=== PATIENT | male | born 1975 | race Caucasian/White ===

== ENCOUNTER 2021-01-17 14:11 | Emergency (ER) | payer OTHER ==
--- OUTSIDE RECORDS SUMMARY | 2021-01-17 14:13 | XMS REPORT | Continuity of Care Document ---
:1975 Author Organization [facility] t Address [address] [place] [address] Care Team Providers Name Role Phone Robin LAI Attending Clinician Devin RN, L Attending Clinician Unavailable Problems Condition Condition Condition Status Onset Resolution Last Treating Co mments Source Name Details Category Date Date Treatment Clinician Date Well adult Well adult Diagnosis Active [facility] routine on routine [facility] Memoria check check l [facility] Tobacco Tobacco Diagnosis [facility] - disorder disorder Memori a l [facility] Fatigue, Fatigue, Diagnosis Active [facility] unspecifie unspecifie Elsa s - d type d type Memoria [facility] Low Low Diagnosis Active [facility] testostero testostero Elsa kes - ne in male ne in male Me moria l [facility] HIV HIV Diagnosis Active [facility] positive positive [facility] Attention Attention Diagnosis Active C [facility] deficit deficit [facility] - hyperactiv hyperactiv Me moria ity ity l disorder disorder Outpat i (ADHD), (ADHD), ent predominan predominan Cl inics tly tly inattentiv inattentiv e type e type Allergies, Adverse Reactions, Alerts This patient has no known allergies or adverse reactions. Medications Ordered Filled Start Stop Current Ordering Indication Dosage Frequency Signature Comments Components Source Medication Medication Date Date Medication? Clinician (SIG) Name Name Triumeq Triumeq Yes Gael [address] [facility] ent [facility] Adderall Adderall Yes Gael [address] [facility] Procedures This patient has no known procedures. Encounters Start End Encounter Admission Attending Care Care Encounter Source Date/Time Date/Time Type Type Clinicians Facility Department ID 2020-12-10 2020-12-10 [facility] [id number] 00:00:00 00:00:00 [facility] [id number] [facility] [id number] 2020-11-16 2020-11-[id number] 00:00:00 00:00:00 [facility] [id number] [facility] [id number] 2020-09-12 2020-09-12 [facility] [id number] 00:00:00 00:00:00 [facility] [id number] [facility] [id number] 2020-08-27 2020-08-[id number] 00:00:00 00:00:00 [facility] [id number] [facility] [id number] 2019-01-30 2019-01-30 [facility] [id number] 08:30:00 08:30:00 [facility] Results This patient has no known results.
[2021-01-17] MEDS ORDERED: HYDROCODONE/APAP 10/325 TAB ONE (15:00)
[2021-01-17] MEDS ORDERED: levoFLOXacin 750 MG TAB ONE (15:00)
[2021-01-17] MEDS ORDERED: TETANUS & DIPHTHERIA TOX,ADULT 0.5 ML VIAL ONE (15:00)
--- NOTE | 2021-01-17 15:13 | RAD REPORT ---
EXAM DESCRIPTION: RAD - Foot Left 3 View - 01/17/2021 3:05 pm CLINICAL HISTORY: nail puncture Pain and swelling COMPARISON: No comparisons FINDINGS: Soft tissue swelling is seen along the plantar aspect of the forefoot. No radiopaque forei gn body is seen. No underlying fracture. No subcutaneous gas.
--- NOTE | 2021-01-17 15:26 | EDPHYS ---
Physician Documentation [facility] Name: Neil Lee Age: 45 yrs Sex: Male : 1975 Arrival Date: 01/17/2021 Time: 14:13 Bed 6 Private MD: ED Physician Fortino Peraza HPI: 01/17 14:16 This 45 yrs old Male presents to ER via Ambulatory with complaints of Foot jmm Pain-Swelling. 14:16 The patient presents with an injury, pain. Onset: The symptoms/episode began/occurred jmm acutely, yesterday. Modifying factors: The symptoms are alleviated by nothing, the symptoms are aggravated by nothing. Associated signs and symptoms: Pertinent positives: swelling, Pertinent negatives: fever. This is a 45 year old male with a history of HIV that presents to the ED with complaints of left plantar foot pain after stepping on a nail which went through his shoe. Patient states he removed the nail immediately and cleaned the area. Awoke to swelling and increased pain today. Denies fever. . Historical: - Allergies: 14:16 No Known Allergies; ll1 - PMHx: 14:16 HIV; ll1 - PSHx: 14:16 None; ll1 - Immunization history:: Flu vaccine is up to date. - Social history:: Smoking status: Patient reports the use of cigarette tobacco products, smokes one-half pack cigarettes per day. ROS: 14:16 Constitutional: Negative for fever, chills, and weight loss, Cardiovascular: Negative jmm for chest pain, palpitations, and edema, Respiratory: Negative for shortness of breath, cough, wheezing, and pleuritic chest pain. 14:16 MS/extremity: Positive for swelling. 14:16 All other systems are negative. Exam: 14:16 Constitutional: This is a well developed, well nourished patient who is awake, alert, jmm and in no acute distress. Head/Face: atraumatic. Eyes: EOMI, no conjunctival erythema appreciated ENT: Moist Mucus Membranes Neck: Trachea midline, Supple Chest/axilla: Normal chest wall appearance and motion. Cardiovascular: Regular rate and rhythm. No edema appreciated Respiratory: Normal respirations, no respiratory distress appreciated Abdomen/GI: Non distended, soft Back: Normal ROM Skin: General appearance color normal 14:16 Musculoskeletal/extremity: swelling noted to the ball of the left foot, no purulent drainage or induration appreciated to the puncture site. compartments are soft, NVI. 14:16 Skin: Appearance: Color: normal in color. 14:16 Neuro: Orientation: is normal, Mentation: is normal, Memory: is normal. 14:16 Psych: Behavior/mood is pleasant, cooperative. Vital Signs: 14:16 BP 123 / 91; Pulse 110; Resp 17; Temp 98.5; Pulse Ox 100% ; Weight 72.57 kg; Height 5 ll1 ft. 8 in. (172.72 cm); Pain 10/10; 15:34 BP 121 / 80; Pulse 89; Resp 15 S; Pulse Ox 100% on R/A; Pain 1/10; jd3 14:16 Body Mass Index 24.33 (72.57 kg, 172.72 cm) ll1 MDM: 14:24 Patient medically screened. curt 15:23 Data reviewed: vital signs, nurses notes. Counseling: I had a detailed discussion with curt the patient and/or guardian regarding: the historical points, exam findings, and any diagnostic results supporting the discharge/admit diagnosis, radiology results, the need for outpatient follow up, to return to the emergency department if symptoms worsen or persist or if there are any questions or concerns that arise at home. ED course: Xray is negative for FB. Patient is alert and non toxic in appearance in the ED. Patient prescribed prophylactic abx. Patient is given wound infection return precautions. . 01/17 14:29 Order name: Foot Left 3 View XRAY; Complete Time: 15:17 [facility] Administered Medications: 14:58 Drug: LevaQUIN 750 mg Route: PO; jd3 15:36 Follow up: Response: No adverse reaction jd3 14:58 Drug: Tetanus-Diphtheria Toxoid Adult 0.5 ml {Geological Technician: [employer]. Exp: jd3 03/13/2022. Lot #: [id number]. } Route: IM; Site: right deltoid; 15:36 Follow up: Response: No adverse reaction jd3 14:59 Drug: [place] 10 mg-325 mg 1 tabs Route: PO; jd3 15:36 Follow up: Response: No adverse reaction; RASS: Alert and Calm (0) jd3 Disposition: 01/17/21 15:26 Discharged to Home. Impression: Puncture wound without foreign body of foot. - Condition is Stable. - Discharge Instructions: Puncture Wound. - Prescriptions for Levaquin 750 mg Oral Tablet - take 1 tablet by ORAL route once daily for 10 days; 10 tablet. Ultracet 37.5- 325 mg Oral Tablet - take 1 tablet by ORAL route every 6 hours - for up to 5 days; do not exceed 8 tablets per day.; 20 tablet. - Medication Reconciliation Form, Thank You Letter, Antibiotic Education, Prescription Opioid Use form. - Follow up: Private Physician; When: 2 - 3 days; Reason: Recheck today's complaints, Continuance of care, Re-evaluation by your physician. Follow up: Boris Benedict DPM; When: As needed; Reason: Recheck today's complaints, Continuance of care, Re-evaluation by your physician. Addendum: 01/20/2021 06:02 Co-signature as Attending Physician, Fortino Peraza MD I agree with the assessment and k dr plan of care. Signatures: Dispatcher [employer] EDMS Fortino Peraza MD MD kdr Mickail, Joel, PA PA [facility] Glenn Gaona RN RN jd3 Jennifer Skelton RN RN ll1 Corrections: (The following items were deleted from the chart) 01/17 15:36 15:26 01/17/2021 15:26 Discharged to Home. Impression: Puncture wound without foreign jd3 body of foot. Condition is Stable. Forms are Medication Reconciliation Form, Thank You Letter, Antibiotic Education, Prescription Opioid Use. Follow up: Private Physician; When: 2 - 3 days; Reason: Recheck today's complaints, Continuance of care, Re-evaluation by your physician. Follow up: Dr. Boris Benedict; When: As needed; Reason: Recheck today's complaints, Continuance of care, Re-evaluation by your physician. curt
--- NOTE | 2021-01-17 15:26 | ER ---
Nurse's Notes [facility] Name: Neil Lee Age: 45 yrs Sex: Male : 1975 Arrival Date: 01/17/2021 Time: 14:13 Bed 6 Private MD: Diagnosis: Puncture wound without foreign body of foot Presentation: 01/17 14:16 Chief complaint: Patient states: Stepped on nail yesterday, L foot. Site is red, ll1 painful and swollen today. Coronavirus screen: Client denies travel out of the [place] in the last 14 days. cough unrelated to allergies, Client presents with at least one sign or symptom that may indicate coronavirus-19. Standard/surgical mask placed on the client. Ebola Screen: Patient denies travel to an Ebola-affected area in the 21 days before illness onset. Initial Sepsis Screen: Does the patient meet any 2 criteria? HR > 90 bpm. No. Patient's initial sepsis screen is negative. Does the patient have a suspected source of infection? Yes: Bone or joint infection. Risk Assessment: Do you want to hurt yourself or someone else? Patient reports no desire to harm self or others. Onset of symptoms was January 16, 2021. 14:16 Method Of Arrival: Ambulatory ll1 14:16 Acuity: AARON 3 ll1 Historical: - Allergies: 14:16 No Known Allergies; ll1 - PMHx: 14:16 HIV; ll1 - PSHx: 14:16 None; ll1 - Immunization history:: Flu vaccine is up to date. - Social history:: Smoking status: Patient reports the use of cigarette tobacco products, smokes one-half pack cigarettes per day. Screenin:25 Abuse screen: Denies threats or abuse. Nutritional screening: No deficits noted. jd3 Tuberculosis screening: No symptoms or risk factors identified. Fall Risk Ambulatory Aid- None/Bed Rest/Nurse Assist (0 pts). Gait- Normal/Bed Rest/Wheelchair (0 pts) Mental Status- Oriented to own ability (0 pts). Total Paulson Fall Scale indicates No Risk (0-24 pts). Assessment: 14:24 General: Appears in no apparent distress. uncomfortable, Behavior is calm, cooperative, jd3 appropriate for age. Pain: Complains of pain in left foot. Neuro: Level of Consciousness is awake, alert, obeys commands, Oriented to person, place, time, situation. Cardiovascular: Capillary refill < 3 seconds Patient's skin is warm and dry. Respiratory: Airway is patent Respiratory effort is even, unlabored, Respiratory pattern is regular, symmetrical, Denies cough, shortness of breath. GI: No signs and/or symptoms were reported involving the gastrointestinal system. : No signs and/or symptoms were reported regarding the genitourinary system. EENT: No signs and/or symptoms were reported regarding the EENT system. Derm: Skin is intact, Skin is dry, Skin is normal, Skin temperature is warm. Musculoskeletal: Circulation, motion, and sensation intact. Range of motion: limited in left foot/toes Swelling present in left foot. 15:34 Reassessment: Patient appears in no apparent distress at this time. Patient and/or jd3 family updated on plan of care and expected duration. Pain level reassessed. Patient is alert, oriented x 3, equal unlabored respirations, skin warm/dry/pink. pt reports good relief from medication. reported understanding of discharge instructions, steady gait upon discharge Patient states feeling better. Vital Signs: 14:16 BP 123 / 91; Pulse 110; Resp 17; Temp 98.5; Pulse Ox 100% ; Weight 72.57 kg; Height 5 ll1 ft. 8 in. (172.72 cm); Pain 10/10; 15:34 BP 121 / 80; Pulse 89; Resp 15 S; Pulse Ox 100% on R/A; Pain 1/10; jd3 14:16 Body Mass Index 24.33 (72.57 kg, 172.72 cm) ll1 ED Course: 14:13 Patient arrived in ED. ds1 14:18 Triage completed. ll1 14:18 Arm band placed on Patient placed in an exam room, on a stretcher. ll1 14:19 Dandre Brock PA is PHCP. [facility] 14:19 Fortino Peraza MD is Attending Physician. jmm 14:21 Glenn Gaona RN is Primary Nurse. jd3 14:25 Patient has correct armband on for positive identification. Bed in low position. Call jd3 light in reach. Side rails up X 1. Pulse ox on. NIBP on. 15:05 Foot Left 3 View XRAY In Process Unspecified. EDMS 15:25 Selbst, Boris, DPM is Referral Physician. [facility] 15:35 No provider procedures requiring assistance completed. Patient did not have IV access jd3 during this emergency room visit. Administered Medications: 14:58 Drug: LevaQUIN 750 mg Route: PO; jd3 15:36 Follow up: Response: No adverse reaction jd3 14:58 Drug: Tetanus-Diphtheria Toxoid Adult 0.5 ml {Invasive Cardiologist: [facility]. Exp: jd3 03/13/2022. Lot #: [id number]. } Route: IM; Site: right deltoid; 15:36 Follow up: Response: No adverse reaction jd3 14:59 Drug: [place] 10 mg-325 mg 1 tabs Route: PO; jd3 15:36 Follow up: Response: No adverse reaction; RASS: Alert and Calm (0) jd3 Outcome: 15:26 Discharge ordered by MD. [facility] 15:35 Discharged to home ambulatory, with family. jd3 15:35 Condition: stable 15:35 Discharge instructions given to patient, Instructed on discharge instructions, follow up and referral plans. medication usage, Demonstrated understanding of instructions, follow-up care, medications, Prescriptions given X 2. 15:36 Patient left the ED. jd3 Signatures: Dispatcher [employer] EDMS Dandre Brock PA PA Jenna Parsons ds1 Glenn Gaona RN RN jJennifer Sanchez RN RN ll1 Corrections: (The following items were deleted from the chart) 15:35 15:26 Reassessment: Patient appears in no apparent distress at this time. No changes jd3 from previously documented assessment. Patient and/or family updated on plan of care and expected duration. Pain level reassessed. Patient is alert, oriented x 3, equal unlabored respirations, skin warm/dry/pink. jd3
[2021-01-17 15:43] VITALS: TEMP 98.5; O2SAT 100
[2021-01-17 15:44] VITALS: BP 121/80
== END 2021-01-17 15:36 | disposition home or self-care (01) ==
LOC: ER 14:11
DX: S91.332A Puncture wound without foreign body, left foot, initial encounter (principal); F17.210 Nicotine dependence, cigarettes, uncomplicated; W45.0XXA Nail entering through skin, initial encounter; Y93.01 Activity, walking, marching and hiking; Y92.9 Unspecified place or not applicable; Z23 Encounter for immunization; Z21 Asymptomatic human immunodeficiency virus [HIV] infection status
CPT/HCPCS: 90471; 90714; 99284